=== PATIENT | male | born 1990 | race African-American/Black ===

== ENCOUNTER 2020-08-08 21:11 | Emergency (ER) | payer SELFPAY | END 2020-08-08 21:52 | disposition home or self-care (01) | LOC: CSHERS 21:11 | DX: K02.9 Dental caries, unspecified (principal); K03.81 Cracked tooth | CPT/HCPCS: 99282 ==

== ENCOUNTER 2021-02-14 15:56 | Emergency (ER) | payer SELFPAY ==
[2021-02-14 16:59] LABS: Bilirubin Neg (Negative); Blood, Urine 25 (Negative); Clarity Cloudy (Clear); Glucose, Urine (Dipstick) Normal (Negative); Ketone, Urine Negative (Negative); Leukocyte 500 (Negative); Nitrite Negative (Negative); Protein, Urine (Dipstick) 30 mg/dl (Neg-Trace); Urobilinogen Normal mg/dL (Less than 2)
[2021-02-14 17:05] LABS: RBC/HPF 0-3 HPF (0-3); WBC/HPF Greater Than 50 HPF (0-3)
[2021-02-14 17:06] LABS: Bacteria/HPF Rare-Few HPF (None Seen); Squamous Epithelial 0-3 HPF (0-3)
[2021-02-14] MEDS ORDERED: cefTRIAXone\\ROCEPHIN 500 MG VIAL ONE (17:22)
[2021-02-14] MEDS ORDERED: Azithromycin 250 MG TAB ONE (17:23)
[2021-02-15 21:42] LABS: Chlam.trachomatis by PCR,Urine Not Detected (NotDetected)
== END 2021-02-14 17:33 | disposition home or self-care (01) ==
LOC: CSHERS 15:56
DX: R30.0 Dysuria (principal)
CPT/HCPCS: 81003; 81015; 87086; 87491; 87591; 96372; 99283; J0696